=== PATIENT | female | born 1995 | race Caucasian/White ===

== ENCOUNTER 2018-05-27 01:37 | Emergency (ER) | payer BC, OTHER ==
[~2018-05-27] VITALS: Wt 66.4 kg
[2018-05-27 01:42] VITALS: BP 121/74; PULSE 90; RESP 18
[2018-05-27] MEDS ORDERED: ONDANSETRON (ODT) 4 MG TAB ODT STA (02:11)
[2018-05-27] MEDS ORDERED: HYDROCODONE/APAP (5/325) TAB PO ONE (02:30)
[2018-05-27] MEDS ORDERED: TRAM50TA2 PO (03:35)
--- NOTE | 2018-06-08 13:09 | ERD ---
ER Documentation Chief Complaint Chief Complaint R LEG PAIN, RADIATING DOWN LEG FROM THIGH HPI 23-year-old female presents with worsening right leg pain rating from lower back. Denies any history of specific trauma. May have started with awkward movement. Feels sensation of weakness. Denies any bowel or bladder incontinence, fevers, urinary complaints. Patient had an x-ray with primary doctor but is not scheduled to get results for 2 weeks and symptoms are worsening. ROS All systems reviewed and are negative except as per history of present illness. Medications Home Meds Active Scripts Tramadol HCl (Tramadol HCl) 50 Mg Tablet, 50 MG PO Q4 PRN for PAIN, #20 TAB Prov:PAOLA GALAN MD 05/27/18 Allergies Allergies: Coded Allergies: No Known Allergy (Unverified , 02/15/14) PMhx/Soc Medical and Surgical Hx: pt denies Medical Hx, pt denies Surgical Hx History of Surgery: No Anesthesia Reaction: No Hx Neurological Disorder: No Hx Respiratory Disorders: No Hx Cardiac Disorders: No Hx Psychiatric Problems: No Hx Alcohol Use: No Hx Substance Use: No Hx Tobacco Use: No FmHx Family History: No diabetes, No coronary disease, No other Physical Exam Physical Exam Const: No acute distress Head: Atraumatic Eyes: Normal Conjunctiva ENT: Normal External Ears, Nose and Mouth. Neck: Full range of motion. No meningismus. Resp: Clear to auscultation bilaterally Cardio: Regular rate and rhythm, no murmurs Abd: Soft, non tender, non distended. Normal bowel sounds Skin: No petechiae or rashes Back: No midline or flank tenderness. Positive straight leg raise. Ext: No cyanosis, or edema Neur: Awake and alert. No obvious deficits although difficulty ambulating due to pain. Psych: Normal Mood and Affect Results 24 hrs Laboratory Tests Test 05/27/18 02:41 POC Beta HCG, Qualitative NEGATIVE Current Medications Medications Dose Sig/Estrella Start Time Status Last (Trade) Ordered Route PRN Stop Time Admin Dose Reason Admin 1 tab ONCE ONCE 05/27/18 DC 05/27/18 Acetaminophen PO 02:30 05/27/18 02:22 / 02:31 Hydrocodone Bitart ([place] (5/325)) Ondansetron 8 mg ONCE STAT 05/27/18 DC HCl (Zofran ODT 02:11 05/27/18 Odt) 02:12 Procedures/MDM Patient was given Toradol and [place] for pain. Patient presents with low back pain radiating to the right leg with possible numbness or mild weakness. CT lumbar spine shows L5-S1 disc protrusion with central canal stenosis without findings of cauda equina syndrome, additional significant abnormalities. Patient signs and symptoms of sciatica with findings of degenerative disc disease on CT scan. He will be discharged home with tramadol, ibuprofen, recommendations for primary care follow-up and referral for specialist for persistent or worsening symptoms. She is to return for fevers, new or worsening symptoms. The patient was stable with no new complaints during the ER course. Clinically, there is no current evidence to suggest meningitis, sepsis, acute abdomen, pneumonia, stroke, acute coronary syndrome, pulmonary embolism, aortic dissection or any other emergent condition appearing to require further evaluation or hospitalization. Patient counseled regarding my diagnostic impression and care plan. Prior to discharge all questions answered. Pt agrees with treatment plan and understands strict return precautions. Pt is instructed to follow up with primary care provider within 24-48 hours. Precautionary instructions provided including instructions to return to the ER if not improving or for any worsening or changing symptoms or concerns. . Departure Diagnosis: Primary Impression: Sciatica Laterality: right Qualified Codes: M54.31 - Sciatica, right side Condition: Stable Patient Instructions: Back Exercises, Lumbar, Back Pain W/ Sciatica Additional Instructions: CT shows bulging disc at L5-S1 which correlates with symptoms. Recommend exercise at home, physical therapy as scheduled, specialist evaluation for further evaluation and treatment. Recheck otherwise for fevers, incontinence, weakness, new worsening symptoms. PAOLA GALAN MD Jun 08, 2018 13:09
== END 2018-05-27 03:54 | disposition home or self-care (01) ==
LOC: FTE 01:37
DX: M54.31 Sciatica, right side (principal)
CPT/HCPCS: 72131; 81025; Z7502; Z7610